=== PATIENT | female | born 1960 | race American Indian/Alaskan Native ===

== ENCOUNTER 2016-11-24 03:45 | Emergency (ER) | payer BC ==
[2016-11-24 04:19] VITALS: BP 141/87
--- NOTE | 2016-11-24 04:49 | Emergency Department Report ---
HPI - General Chief Complaint: Dental/Oral Time Seen by Provider: 11/24/16 04:48 - HPI HPI: Patient is hearing impaired .Communication is with between myself and patient Patient reports that she has also end-tidal pain for one month. denies any swelling or shortness of breath. denies a sore throat. reports her tongue is burning in and reported that she has white discharge in town.. denies any medical problems. patient is hearing impaired. She denies any immunocompromised state. She says she is not on any medication. She does not have a primary care doctor but she says she has a [facility] doctor is name is Dr. Zabala. ED Past Medical Hx - Past Medical History Previous Medical History?: Yes Additional medical history: deaf - Surgical History Past Surgical History?: Yes Additional Surgical History: nose - Family History Family history: no significant - Social History Smoking Status: Current Every Day Smoker Substance Use Type: None - Medications Home Medications: Home Medications Medication Instructions Recorded Confirmed Last Taken Type Fluconazole [Diflucan TAB] 150 mg PO ONCE #1 tablet 11/24/16 Unknown Rx Nystas/Diphen/Xyl Visc/Mylanta 5 ml PO Q6H #140 ml 11/24/16 Unknown Rx [Magic Mouthwash] ED Review of Systems ROS: Stated complaint: TONGUE PAIN Other details as noted in HPI Comment: All other systems reviewed and negative Constitutional: denies: chills, fever ENT: other (complainingwhite coating and soreness to tongue). denies: ear pain , throat pain Respiratory: no symptoms reported Cardiovascular: denies: chest pain, palpitations, edema, syncope Gastrointestinal: denies: abdominal pain, nausea, vomiting, diarrhea, constipation Musculoskeletal: denies: back pain, arthralgia Skin: denies: rash Neurological: denies: headache, numbness, paresthesias, confusion, abnormal gait , vertigo Physical Exam - Physical Exam Vital Signs: Vital Signs 11/24/16 04:09 Temperature 98.1 F Pulse Rate 79 Respiratory 18 Rate Blood Pressure 141/87 O2 Sat by Pulse 99 Oximetry General: This is a 56-year-old female well-nourished well-developed in no acute distress. Physical Exam: Head: Normocephalic atraumatic Mouth: Moist, no pharyngeal exudate or erythema. Uvula is midline and oral airway is patent. No facial swelling. No peritonsillar abscesses. Patient with white coating with some areas of erythema and tender to palpate. No swelling of tongue. No trismus. No lesions noted. Neck: Supple, no C-spine tenderness, no tracheal deviation. Nontender to palpate. no adenopathy Ears: Patient is legally deaf. Bilateral TMs normal.appearance.. Bilateral EAC without any redness swelling or drainage. Abdomen: Soft, nontender to palpate in all quadrants, normal bowel sounds in all quadrant and negative CVA tenderness bilaterally. No Lungs: Clear to auscultate bilaterally no rhonchi wheezes or rales. Normal work of breathing extremity; No CCE. +2 pulses. No neurovascular compromise Cardiovascular: S1-S2, regular rate rhythm. No murmurs. Skin: clean Dry and intact no rash no lesions Psych: Normal mood and behavior ED Course Vital Signs 11/24/16 04:09 Temperature 98.1 F Pulse Rate 79 Respiratory 18 Rate Blood Pressure 141/87 O2 Sat by Pulse 99 Oximetry - Reevaluation(s) Reevaluation #1: 11/24/16 05:26 Stable throughout ED stay ED Medical Decision Making - Medical Decision Making Via Written communication I discussed the patient. Based on my physical findings she has oral thrush. Patient said she does not have any medical problems and does not have any immunocompromised state. I discussed with her that I will refer her primary care doctor and she will need to call [facility] to see if the doctors in network for her and if not then she can have them refer her to a primary care doctor in her zip code. She says she doesn't have a primary care physician because she doesn't have any medical problems. Patient will be referred to on-call primary care outpatient Dr. Tessie Macias for physical exam to include blood work. This was discussed with patient intermittent communication and she voiced understanding. I also discussed the patient diagnosis and treatment plan via written communication communication issue for some understanding. Patient discharged home in stable condition with prescription for nystatin/lidocaine swish mouthwash and also Diflucan on 1. Smoking cessation encouraged Critical care attestation.: If time is entered above; I have spent that time in minutes in the direct care of this critically ill patient, excluding procedure time. ED Disposition Clinical Impression: Oral thrush, Soreness of tongue, Encounter for smoking cessation counseling, Nicotine abuse Disposition: [id number] TO HOME OR SELFCARE Is pt being admited?: No Does the pt Need Aspirin: No Condition: Stable Instructions: Oral Candidiasis (ED), How to Stop Smoking (ED) Additional Instructions: Please of smoking Medication as prescribed for 7 days Please follow up with primary care doctor that he will refer to. Please see discharge instruction paperwork for phone number and address call in the morning to schedule an appointment for complete physical exam to include blood work. Prescriptions: Fluconazole [Diflucan TAB] 150 mg PO ONCE #1 tablet Nystas/Diphen/Xyl Visc/Mylanta [Magic Mouthwash] 5 ml PO Q6H #140 ml Referrals: TESSIE MACIAS MD [Staff Physician] - 11/25/16 Forms: Work/School Release Form(ED)
== END 2016-11-24 05:50 | disposition home or self-care (01) ==
LOC: ED 03:45
DX: B37.0 Candidal stomatitis (principal); K13.70 Unspecified lesions of oral mucosa
CPT/HCPCS: 99282